=== PATIENT | male | born 1965 | race Caucasian/White ===

== ENCOUNTER 2018-10-22 10:32 | Emergency (ER) | payer SELFPAY ==
[~2018-10-22] VITALS: Ht 152.4 cm; Wt 79.0 kg
[2018-10-22 10:35] VITALS: BP 158/94; PULSE 92; RESP 18; Ht 152.4 cm; Wt 79.0 kg
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
[2018-10-22] MEDS ORDERED: IBUP-1542 PO (11:53)
[2018-10-22] MEDS ORDERED: IBUPROFEN 600 MG TAB PO ONE (12:00)
== END 2018-10-22 12:08 | disposition home or self-care (01) ==
LOC: FTE 10:32
DX: M54.2 Cervicalgia (principal); M54.9 Dorsalgia, unspecified; M24.511 Contracture, right shoulder
CPT/HCPCS: 99282